=== PATIENT | male | born 1995 | race Asian ===

== ENCOUNTER 2016-05-11 20:05 | Emergency (ER) | payer OTHER ==
[~2016-05-11] VITALS: Ht 185.4 cm; Wt 61.5 kg
[2016-05-11 20:11] VITALS: BP 123/81; PULSE 84; TEMP 36.7; Ht 185.4 cm; Wt 61.5 kg
[2016-05-11] MEDS ORDERED: ASPITAB42 PO (20:26)
--- NOTE | 2016-05-11 20:59 | DIAGNOSTIC IMAGING REPORT ---
RIGHT WRIST MIN 3 VIEWS ROUTINE CLINICAL HISTORY: Right wrist pain following fall. COMPARISON: None FINDINGS: Alignment of the right wrist is anatomic. No acute fracture is identified. IMPRESSION: No acute fracture or dislocation of the right wrist. Electronically signed by: Cooper Romo M.D. 05/11/2016 8:57 PM Dictated Date/Time: 05/11/2016 8:56 PM
--- NOTE | 2016-05-11 21:01 | DIAGNOSTIC IMAGING REPORT ---
RIGHT HAND MIN 3 VIEWS ROUTINE CLINICAL HISTORY: Right hand pain following fall. COMPARISON: None FINDINGS: Alignment of the right hand is anatomic anatomic. No acute fracture is identified. There may be bandages on the fourth and fifth fingers. IMPRESSION: No acute fracture or dislocation of the right hand. Electronically signed by: Cooper Romo M.D. 05/11/2016 8:59 PM Dictated Date/Time: 05/11/2016 8:58 PM
[2016-05-11 21:26] VITALS: O2SAT 99
--- NOTE | 2016-05-13 10:28 | EMERGENCY ROOM VISIT NOTE ---
ED Visit Note First contact with patient: 20:15 Chief Complaint: Right wrist and hand pain. History of Present Illness: Mr. Barnes is a 20-year-old [place] male who ambulates into the ED accompanied by female friend complaining of right wrist pain over the styloid process and right hand pain over the fifth metacarpal and MCP joint. Patient reports approximately 30 minutes before he arrived in the emergency department he slipped and fell onto the ice onto his outstretched right hand. He denies striking his head at the time of the fall and there was no loss of consciousness. Since the fall he denies all signs of head injury. Currently he describes his pain as a sharp and throbbing sensation. He rates his discomfort 7/10. His pain is nonradiating. His pain worsens with palpation , wrist flexion, extension and radial and ulnar deviation and flexion and extension of the fifth MCP joint. He has not identified any alleviating factors related to the pain. He has not taken any medications for pain prior to arrival at the hospital. He denies any associated symptoms including shoulder pain, elbow pain, proximal forearm pain, hand weakness/numbness/ tingling. Additionally he denies any previous significant injuries or surgeries to the right wrist or hand. Review of Systems: As noted above in history of present illness. Past Medical History: Patient denies. Current Medications: Patient denies. Allergies to Medications: Patient denies. Social History: Patient is [employer] student; he feels safe in his home environment; he denies tobacco and alcohol use. Physical Examination: Vital Signs: Date Time Temp Pulse Resp B/P Pulse Ox O2 Delivery O2 Flow Rate FiO2 05/11/16 21:26 21 99 05/11/16 20:11 36.7 84 20 123/81 98 Room Air GENERAL: 20-year-old male in mild distress due to pain, nontoxic-appearing, afebrile and hemodynamically stable. NEUROLOGICAL: Awake, alert and oriented to person, place and time. Answering questions appropriately and following commands. SKIN: Warm, dry and pink. No soft tissue trauma noted. RIGHT UPPER EXTREMITY: No gross bony deformity. No tenderness in the shoulder, elbow or proximal forearm. Tenderness over the styloid process with mild swelling but no bony deformity or bony crepitus or ecchymosis. There is also mild tenderness over the lunate and pisiform carpals with no bony deformity or crepitus. Decreased range of motion in all movements of the wrist due to pain. Tenderness throughout the distal fifth metacarpal and over the fifth MCP joint without bony deformity or crepitus. Mild swelling of the MCP joint. Full range of motion in flexion, extension of the MCP joint and PIP joint. Throughout the hand the skin was warm and pink and capillary refill is brisk. He was able to distinguish light sensations through all dermatomes. ED Course: Patient is assessed as noted above. Patient is given ice for pain and comfort; he refused pain medications. Right Hand X-Rays: Were read by myself and the radiologist showing no acute fractures or dislocations. Right Wrist X-Rays: Were read by myself and the radiologist showing no acute fractures or dislocations. Patient was placed in a wrist lacer splint. Patient was educated about tonight's findings and instructed on his treatment plan; he verbalizes understanding and agreement with this plan. Clinical Impression: Right wrist and hand pain. Status post fall. Disposition: Patient discharged home in stable condition accompanied by female friends; prior to departure he was reassessed and subjectively reported he was feeling much better and rated his discomfort 1/10. Plan: Comfort measures including rest, ice, splint use and alternating ibuprofen and acetaminophen were discussed with the patient. Patient was encouraged to follow-up at [facility] if no better in 7-10 days for recheck and possible referral to orthopedics. Patient was encouraged return the ED for worsening/uncontrolled pain, uncontrolled swelling, hand weakness/numbness/tingling or any new/concerning symptoms.
== END 2016-05-11 21:27 | disposition home or self-care (01) ==
LOC: C.EDB 20:07 → C.EDD 21:27
DX: M25.531 Pain in right wrist (principal); M79.641 Pain in right hand; W00.0XXA Fall on same level due to ice and snow, initial encounter